=== PATIENT | male | born 1940 | race Caucasian/White ===

== ENCOUNTER 2017-02-10 07:40 | Inpatient (IN) | payer MEDICARE, OTHER ==
[2017-02-07 13:12] VITALS: BP 128/77
[2017-02-07 13:54] LABS: PATH.CAST-FLAG NOT PRESENT; SPERM-FLAG NOT PRESENT; SRC-FLAG NOT PRESENT; XTAL-FLAG NOT PRESENT; YLC-FLAG NOT PRESENT
[2017-02-07 14:04] LABS: ASPARTATE AMINO TRANSFERASE 27 U/L (15-37); BLOOD UREA NITROGEN 33 mg/dL (7-18)
[~2017-02-10] VITALS: Ht 175.3 cm; Wt 81.0 kg
[~2017-02-10 07:40] MED LIST: ACET-1600 PO; ALLO300T PO; AMLO1CAP15 PO; HYDR25TA6 PO; TRANEXAMIC ACID 100 MG/ML, 10ML ONE; VANCOMYCIN 1,000 MG ONE
[2017-02-10] MEDS ORDERED: VANCOMYCIN PER PHARMACY MC STA (08:20)
[2017-02-10] MEDS ORDERED: FENTANYL PF 250 MCG/5ML ONE (08:40)
[2017-02-10] MEDS ORDERED: MIDAZOLAM 1 MG/ML, 2ML ONE (08:40)
[2017-02-10] MEDS ORDERED: LACTATED RINGERS 1,000 ML IV SCH (08:42)
[2017-02-10] MEDS ORDERED: LIDOCAINE 1%, 2ML ONE (08:52)
[2017-02-10] MEDS ORDERED: ROPIvacaine/PF 0.2%, 20 ML ONE (08:59)
[2017-02-10] MEDS ORDERED: FENTANYL PF 100 MCG/2ML IV PRN (09:00)
[2017-02-10] MEDS ORDERED: HYDROmorphone 1 MG/ML, 1ML IV PRN ×2 (09:00→11:30)
[2017-02-10] MEDS ORDERED: hydrALAzine 20 MG/ML, 1ML IV PRN (09:00)
[2017-02-10] MEDS ORDERED: MEPERIDINE/PF 25MG/0.5ML IVPush PRN (09:00)
[2017-02-10] MEDS ORDERED: OXYcodone 5 MG/5 ML ORAL.SOL UDC PO PRN (09:00)
[2017-02-10] MEDS ORDERED: ACETAMINOPHEN 325 MG TABLET PO PRN (09:00)
[2017-02-10] MEDS ORDERED: LIDOCAINE 1%, 2ML SQ PRN (09:00)
[2017-02-10] MEDS ORDERED: MIDAZOLAM 1 MG/ML, 2ML IV PRN (09:00)
[2017-02-10] MEDS ORDERED: PROMETHAZINE 25 MG/ML, 1ML IV PRN (09:00)
[2017-02-10] MEDS ORDERED: LABETALOL 5MG/ML, 20ML IV PRN (09:00)
[2017-02-10] MEDS ORDERED: METOPROLOL 1 MG/ML, 5ML IV PRN (09:00)
[2017-02-10] MEDS ORDERED: ONDANSETRON 2MG/ML, 2ML IVPush PRN (09:00)
[2017-02-10] MEDS ORDERED: ALBUTEROL/IPRATROPIUM 2.5MG/0.5MG, 3 ML NPPB PRN (09:00)
[2017-02-10] MEDS ORDERED: EPHEDRINE 50 MG/ML, 1ML IVPush PRN (09:00)
[2017-02-10] MEDS ORDERED: ALBUTEROL SULFATE 2.5 MG/3 ML NPPB PRN (09:00)
[2017-02-10] MEDS ORDERED: VANCOMYCIN 1,500 MG in SODIUM CHLORIDE 0.9% 250 ML IV ONE (09:30)
[2017-02-10] MEDS ORDERED: CEFAZOLIN 1,000 MG ONE (10:00)
[2017-02-10] MEDS ORDERED: PNEUMOCOCCAL 23 VACCINE IM-VACC ONE (10:00)
[2017-02-10] MEDS ORDERED: ONDANSETRON 2MG/ML, 2ML ONE (10:00)
[2017-02-10] MEDS ORDERED: PROPOFOL 10 MG/ML, 20ML ONE (10:00)
[2017-02-10] MEDS ORDERED: DEXAMETHASONE 4 MG/ML, 1ML ONE (10:00)
[2017-02-10] MEDS ORDERED: SENNA/DOCUSATE TABLET PO PRN (11:30)
[2017-02-10] MEDS ORDERED: MAGNESIUM HYDROXIDE 8%, 30ML UDC PO PRN (11:30)
[2017-02-10] MEDS ORDERED: BISACODYL 10 MG SUPP PR PRN (11:30)
[2017-02-10] MEDS ORDERED: SCOPOLAMINE PATCH, 1.5MG PATCH.TD72 TD SCH (11:30)
[2017-02-10] MEDS ORDERED: ALUMINUM/MAG/SIMETHICONE 30 ML UDC PO PRN (11:30)
[2017-02-10] MEDS ORDERED: DIPHENHYDRAMINE 50 MG CAPSULE PO PRN (11:30)
[2017-02-10] MEDS: ACETAMINOPHEN 650 MG/20.3 ML UDC PO SCH ×2 (11:30→18:25)
[2017-02-10] MEDS ORDERED: ONDANSETRON 4 MG TABLET PO PRN (11:30)
[2017-02-10] MEDS ORDERED: ONDANSETRON 2MG/ML, 2ML IV PRN (11:30)
[2017-02-10] MEDS ORDERED: PROMETHAZINE 12.5 MG SUPP PR PRN (11:30)
[2017-02-10] MEDS ORDERED: TRANEXAMIC ACID 1,000 MG in SODIUM CHLORIDE 0.9% 100 ML IVPB ONE (12:00)
[2017-02-10] MEDS ORDERED: ACETAMINOPHEN 325 MG TABLET ONE (12:05)
[2017-02-10] MEDS ORDERED: OXYcodone 5 MG/5 ML ORAL.SOL UDC ONE (12:05)
[2017-02-10] MEDS ORDERED: ACETAMINOPHEN 650 MG/20.3 ML UDC ONE (12:05)
[2017-02-10 13:12] VITALS: BP 133/69
[2017-02-10 13:16] VITALS: BP 133/69
[2017-02-10] MEDS: D5%-0.45NACL+KCL 20MEQ 1,000 ML IV SCH ×2 (15:12→22:19)
[2017-02-10] MEDS: TAMSULOSIN 0.4 MG CAP.ER.24H PO SCH (15:12)
[2017-02-10] MEDS: CEFAZOLIN PMX 1GM/50ML 50 ML IVPB SCH (18:24)
[2017-02-10 21:27] VITALS: BP 122/74
[2017-02-10] MEDS: DOCUSATE 100 MG CAPSULE PO SCH (22:33)
[2017-02-10] MEDS: OXYcodone IR 5MG TABLET PO PRN (22:33)
[2017-02-11 00:14] VITALS: BP 135/72
[2017-02-11] MEDS: ACETAMINOPHEN 650 MG/20.3 ML UDC PO SCH ×3 (00:25→12:01)
[2017-02-11] MEDS: CEFAZOLIN PMX 1GM/50ML 50 ML IVPB SCH (02:53)
[2017-02-11 04:38] VITALS: BP 110/64
[2017-02-11] MEDS: D5%-0.45NACL+KCL 20MEQ 1,000 ML IV SCH ×2 (04:39→11:27)
[2017-02-11] MEDS ORDERED: DEXAMETHASONE 4 MG/ML, 1ML IVPush SCH (06:00)
[2017-02-11] MEDS ORDERED: ASPIRIN 81 MG TABLET EC PO SCH (06:00)
[2017-02-11] MEDS: OXYcodone IR 5MG TABLET PO PRN ×2 (06:42→12:01)
[2017-02-11 07:35] VITALS: BP 106/65
[2017-02-11] MEDS ORDERED: MULTIVITAMINS/MINERALS TABLET PO SCH (09:00)
[2017-02-11] MEDS ORDERED: ALLOPURINOL 300 MG TABLET PO SCH (09:00)
[2017-02-11] MEDS ORDERED: AMLODIPINE 5 MG TABLET PO SCH (09:00)
[2017-02-11] MEDS ORDERED: BENAZEPRIL 20 MG TABLET PO SCH (09:00)
[2017-02-11] MEDS ORDERED: HYDROCHLOROTHIAZIDE 25 MG TABLET PO SCH (09:00)
[2017-02-11] MEDS: TAMSULOSIN 0.4 MG CAP.ER.24H PO SCH (09:21)
[2017-02-11] MEDS: DOCUSATE 100 MG CAPSULE PO SCH (09:21)
[2017-02-11] MEDS ORDERED: KETOROLAC 30 MG/1 ML IV SCH (11:30)
[2017-02-11] MEDS ORDERED: OXYC5CAP4 PO (12:42)
[2017-02-11] MEDS ORDERED: ONDA4TAB13 SL (12:44)
[2017-02-11] MEDS ORDERED: ASPI-496 PO (12:45)
[2017-02-11] MEDS ORDERED: DOCU-30 PO (12:47)
[2017-02-11 13:00] VITALS: BP 112/66
== END 2017-02-11 13:25 | disposition home or self-care (01) | DRG 470 ==
LOC: ORIP 07:40 → 4NOR 13:07
PROVIDERS: ADMIT Orthopaedic Surgery Adult Reconstructive Orthopaedic Surgery; ATTEND Orthopaedic Surgery Adult Reconstructive Orthopaedic Surgery
PROC: 0SRB04A Replacement of Left Hip Joint with Ceramic on Polyethylene Synthetic Substitute, Uncemented, Open Approach (ICD-10-PCS; principal; 2017-02-11)
DX: M16.12 Unilateral primary osteoarthritis, left hip (principal); E44.1 Mild protein-calorie malnutrition
CPT/HCPCS: 36415; 72170; 80053; 81001; 85025; 85610; 85730; 86850; 86900; 87081; 90732; 93005; C1713; J0690; J1100; J2250; J2405; J2704; J2795; J3010; J3370; C1776; J3480; J7050; J7120

== ENCOUNTER → 2017-05-23 | Outpatient (CLI) | payer MEDICARE, OTHER ==
[~2017-05-23] MED LIST changes: +ASPI-496 PO; +DOCU-131 PO; +OMNIPAQUE 350 MG/ML, 100ML BOTTLE ONE; +ONDA4TAB13 SL; +OXYC5CAP2 PO; -TRANEXAMIC ACID 100 MG/ML, 10ML ONE; -VANCOMYCIN 1,000 MG ONE
== END | disposition home or self-care (01) ==
LOC: CFH 13:38
PROVIDERS: ATTEND Family Medicine
DX: K57.30 Diverticulosis of large intestine without perforation or abscess without bleeding (principal); K80.20 Calculus of gallbladder without cholecystitis without obstruction; N40.0 Benign prostatic hyperplasia without lower urinary tract symptoms; N28.1 Cyst of kidney, acquired; K76.89 Other specified diseases of liver; J98.4 Other disorders of lung
CPT/HCPCS: 74177; 82565; Q9967

== ENCOUNTER 2017-06-17 09:23 | Inpatient (IN) | payer MEDICARE, OTHER ==
[~2017-06-17] VITALS: Ht 175.3 cm; Wt 80.8 kg
[~2017-06-17 09:23] MED LIST changes: -OMNIPAQUE 350 MG/ML, 100ML BOTTLE ONE
[2017-06-17] MEDS ORDERED: ONDANSETRON 2MG/ML, 2ML IVPush PRN ×2 (13:30→15:30)
[2017-06-17] MEDS ORDERED: SODIUM CHLORIDE 0.9% 1,000 ML IV SCH (13:30)
[2017-06-17 13:54] VITALS: BP 110/67
[2017-06-17] MEDS ORDERED: PLEASE ENTER HEIGHT AND WEIGHT MC SCH (14:00)
[2017-06-17 14:07] LABS: BLOOD UREA NITROGEN 29 mg/dL (7-18)
[2017-06-17 14:08] LABS: HEMATOCRIT 38.5 % (39.2-51.8); HEMOGLOBIN 12.7 g/dL (13.7-18.0); WHITE BLOOD COUNT 10.3 x10^3/uL (3.4-10)
[2017-06-17 15:02] VITALS: BP 110/67
[2017-06-17] MEDS: morphine SULFATE 10 MG/ML, 1ML IVPush PRN (15:27)
[2017-06-17] MEDS ORDERED: ONDANSETRON ODT 4 MG PO PRN (15:30)
[2017-06-17] MEDS ORDERED: LABETALOL 5MG/ML, 20ML IVPush PRN (15:30)
[2017-06-17] MEDS ORDERED: morphine SULFATE 10 MG/ML, 1ML IVPush PRN (15:30)
[2017-06-17 17:14] LABS: HEMOGLOBIN 12.1 g/dL (13.7-18.0); WHITE BLOOD COUNT 9.8 x10^3/uL (3.4-10)
[2017-06-17 17:25] LABS: BLOOD UREA NITROGEN 30 mg/dL (7-18)
[2017-06-17 17:29] LABS: ASPARTATE AMINO TRANSFERASE 32 U/L (15-37)
[2017-06-17 20:00] VITALS: BP 112/68
[2017-06-17] MEDS: D5%-0.45% NACL 1,000 ML IV SCH (21:44)
[2017-06-18 02:00] VITALS: BP 108/65
[2017-06-18 05:32] LABS: HEMATOCRIT 32.3 % (39.2-51.8); HEMOGLOBIN 10.6 g/dL (13.7-18.0); WHITE BLOOD COUNT 9.3 x10^3/uL (3.4-10)
[2017-06-18] MEDS: D5%-0.45% NACL 1,000 ML IV SCH ×2 (05:38→20:19)
[2017-06-18 05:55] LABS: ASPARTATE AMINO TRANSFERASE 26 U/L (15-37); BLOOD UREA NITROGEN 24 mg/dL (7-18)
[2017-06-18 07:34] VITALS: BP 119/64
[2017-06-18] MEDS: PANTOPRAZOLE 40 MG IV IVPush SCH (08:13)
[2017-06-18] MEDS ORDERED: HYDROmorphone 1 MG/ML, 1ML IV PRN (11:00)
[2017-06-18] MEDS ORDERED: MEPERIDINE/PF 25MG/0.5ML IVPush PRN (11:00)
[2017-06-18] MEDS ORDERED: MIDAZOLAM 1 MG/ML, 2ML IV PRN (11:00)
[2017-06-18] MEDS ORDERED: DEXAMETHASONE 4 MG/ML, 1ML ONE (11:00)
[2017-06-18] MEDS ORDERED: GLYCOPYRROLATE 0.4 MG/2 ML, 2ML ONE (11:00)
[2017-06-18] MEDS ORDERED: LABETALOL 5MG/ML, 20ML IV PRN (11:00)
[2017-06-18] MEDS ORDERED: ONDANSETRON 2MG/ML, 2ML IVPush PRN (11:00)
[2017-06-18] MEDS ORDERED: ONDANSETRON 2MG/ML, 2ML ONE (11:00)
[2017-06-18] MEDS ORDERED: hydrALAzine 20 MG/ML, 1ML IV PRN (11:00)
[2017-06-18] MEDS ORDERED: PROMETHAZINE 25 MG/ML, 1ML IV PRN (11:00)
[2017-06-18] MEDS ORDERED: SUCCINYLCHOLINE 20 MG/ML, 10ML ONE (11:00)
[2017-06-18] MEDS ORDERED: ROCURONIUM 10 MG/ML,10ML ONE (11:00)
[2017-06-18] MEDS ORDERED: ALBUTEROL SULFATE 2.5 MG/3 ML NPPB PRN (11:00)
[2017-06-18] MEDS ORDERED: FENTANYL PF 100 MCG/2ML IV PRN (11:00)
[2017-06-18] MEDS ORDERED: PROPOFOL 10 MG/ML, 20ML ONE (11:00)
[2017-06-18 12:22] VITALS: BP 118/75
[2017-06-18] MEDS ORDERED: OMNIPAQUE 350 MG/ML, 100ML BOTTLE ONE (14:23)
[2017-06-18] MEDS: morphine SULFATE 10 MG/ML, 1ML IVPush PRN (18:06)
[2017-06-18 20:00] VITALS: BP 130/72
[2017-06-19 00:06] VITALS: BP 107/60
[2017-06-19] MEDS: D5%-0.45% NACL 1,000 ML IV SCH ×3 (04:18→20:33)
[2017-06-19 06:28] LABS: BLOOD UREA NITROGEN 19 mg/dL (7-18)
[2017-06-19 09:36] VITALS: BP 114/63
[2017-06-19] MEDS: PANTOPRAZOLE 40 MG IV IVPush SCH (10:39)
[2017-06-19 12:55] VITALS: BP 131/68
[2017-06-19 19:47] VITALS: BP 138/75
[2017-06-20 02:41] VITALS: BP 144/77
[2017-06-20] MEDS: D5%-0.45% NACL 1,000 ML IV SCH ×3 (04:38→21:52)
[2017-06-20 06:09] LABS: BLOOD UREA NITROGEN 14 mg/dL (7-18)
[2017-06-20 06:18] LABS: HEMATOCRIT 31.9 % (39.2-51.8); HEMOGLOBIN 10.6 g/dL (13.7-18.0); WHITE BLOOD COUNT 11.7 x10^3/uL (3.4-10)
[2017-06-20] MEDS: PANTOPRAZOLE 40 MG IV IVPush SCH (08:55)
[2017-06-20 09:06] VITALS: BP 149/68
[2017-06-20 10:47] LABS: IS PT STATUS REG ER OR PRE ER? NO
[2017-06-20] MEDS ORDERED: OMNIPAQUE 350 MG/ML, 100ML BOTTLE ONE (13:44)
[2017-06-20 14:46] VITALS: BP 123/73
[2017-06-20 17:22] LABS: IS PT STATUS REG ER OR PRE ER? NO
[2017-06-20 19:46] VITALS: BP 146/69
[2017-06-20 22:24] LABS: IS PT STATUS REG ER OR PRE ER? NO
[2017-06-21 02:35] VITALS: BP 130/69
[2017-06-21 05:07] LABS: HEMATOCRIT 30.6 % (39.2-51.8); HEMOGLOBIN 10.1 g/dL (13.7-18.0); WHITE BLOOD COUNT 11.8 x10^3/uL (3.4-10)
[2017-06-21 05:22] LABS: BLOOD UREA NITROGEN 12 mg/dL (7-18)
[2017-06-21] MEDS: D5%-0.45% NACL 1,000 ML IV SCH ×3 (05:54→22:39)
[2017-06-21 09:12] VITALS: BP 139/69
[2017-06-21] MEDS: PANTOPRAZOLE 40 MG IV IVPush SCH (09:33)
[2017-06-21] MEDS ORDERED: MAGNESIUM SULFATE PMX 4GM/100M 100 ML IV ONE (12:30)
[2017-06-21 15:08] VITALS: BP 129/73
[2017-06-21 19:23] VITALS: BP 143/72
[2017-06-22] VITALS (13 sets, daily range): BP systolic 102–146; BP diastolic 44–69
[2017-06-22 05:32] LABS: HEMATOCRIT 30.4 % (39.2-51.8); HEMOGLOBIN 10.5 g/dL (13.7-18.0); WHITE BLOOD COUNT 9.1 x10^3/uL (3.4-10)
[2017-06-22 05:46] LABS: ASPARTATE AMINO TRANSFERASE 15 U/L (15-37); BLOOD UREA NITROGEN 11 mg/dL (7-18)
[2017-06-22] MEDS: D5%-0.45% NACL 1,000 ML IV SCH (06:30)
[2017-06-22] MEDS ORDERED: SODIUM BICARB 8.4%, 50ML SYRINGE ONE (08:00)
[2017-06-22] MEDS: PANTOPRAZOLE 40 MG IV IVPush SCH (08:11)
[2017-06-22] MEDS ORDERED: MAGNESIUM SULFATE PMX 2GM/50ML 50 ML IV ONE (09:00)
[2017-06-22] MEDS: D5%-0.45NACL+KCL 20MEQ 1,000 ML IV SCH ×2 (10:47→21:20)
[2017-06-22] MEDS ORDERED: MIDAZOLAM 1 MG/ML, 2ML ONE (11:34)
[2017-06-22] MEDS ORDERED: SUFentanil 50 MCG/ML, 1ML ONE (11:36)
[2017-06-22] MEDS ORDERED: PROPOFOL 10 MG/ML, 20ML ONE (11:36)
[2017-06-22] MEDS ORDERED: ROCURONIUM 10 MG/ML,10ML ONE ×2 (11:38→16:18)
[2017-06-22] MEDS ORDERED: KETOROLAC 30 MG/1 ML ONE (11:51)
[2017-06-22] MEDS ORDERED: EPINEPHRINE 1 MG/ML, 1ML ONE (11:51)
[2017-06-22] MEDS ORDERED: CEFOTETAN 2 GM ONE (11:51)
[2017-06-22] MEDS ORDERED: HALOPERIDOL 5 MG/ML ONE ×3 (11:51→14:31)
[2017-06-22] MEDS ORDERED: GLYCOPYRROLATE 0.2MG/1ML, 5ML ONE ×2 (11:55)
[2017-06-22] MEDS ORDERED: DEXAMETHASONE 4 MG/ML, 1ML ONE (12:02)
[2017-06-22] MEDS ORDERED: KETAMINE 10 MG/ML, 20ML ONE (12:20)
[2017-06-22] MEDS ORDERED: THROMBIN 5,000 UNIT VIAL TP ONE (13:02)
[2017-06-22] MEDS ORDERED: ONDANSETRON 2MG/ML, 2ML ONE ×2 (13:19)
[2017-06-22] MEDS ORDERED: BUPIVACAINE/PF 0.25% ONE (13:23)
[2017-06-22] MEDS ORDERED: NALOXONE 0.4 MG/ML, 1ML ONE (13:56)
[2017-06-22] MEDS ORDERED: FENTANYL PF 100 MCG/2ML ONE (14:25)
[2017-06-22] MEDS ORDERED: EPINEPHRINE 2 MG in SODIUM CHLORIDE 0.9% 248 ML IV PRN (15:30)
[2017-06-22] MEDS ORDERED: SODIUM BICARBONATE 4.2%, 5ML ONE (15:58)
[2017-06-22] MEDS ORDERED: SODIUM BICARBONATE 1 MEQ/ML, 50ML VIAL ONE (15:59)
[2017-06-22] MEDS ORDERED: FENTANYL PF 250 MCG/5ML ONE (16:18)
[2017-06-22] MEDS ORDERED: NOREPINEPHRINE 1 MG/ML, 4ML ONE (17:43)
[2017-06-22] MEDS ORDERED: MIDAZOLAM 1 MG/ML, 5ML ONE (18:14)
[2017-06-22] MEDS ORDERED: FENTANYL PF 100 MCG/2ML IV PRN (18:30)
[2017-06-22] MEDS ORDERED: NOREPINEPHRINE 4 MG in SODIUM CHLORIDE 0.9% 246 ML IV PRN (18:30)
[2017-06-22] MEDS ORDERED: MIDAZOLAM HCL 25 MG in SODIUM CHLORIDE 0.9% 245 ML IV PRN (18:30)
[2017-06-22 19:15] LABS: ABG COLLECTION SITE ARTERIAL LINE
[2017-06-22] MEDS ORDERED: MIDAZOLAM 1 MG/ML, 5ML IVPush ONE (19:30)
[2017-06-22] MEDS ORDERED: ONDANSETRON 2MG/ML, 2ML IVPush PRN (19:30)
[2017-06-22 20:08] LABS: HEMATOCRIT 20.4 % (39.2-51.8); HEMOGLOBIN 7.1 g/dL (13.7-18.0); WHITE BLOOD COUNT 17.1 x10^3/uL (3.4-10)
[2017-06-22] MEDS ORDERED: LACTATED RINGERS 1,000 ML IV SCH (20:30)
[2017-06-22] MEDS ORDERED: LIDOCAINE-MPF 1%, 2ML ENDO PRN (20:30)
[2017-06-22] MEDS ORDERED: PHARMACY MAY ADJ FOR RENAL FX MC SCH (20:30)
[2017-06-22] MEDS ORDERED: CEFOTETAN PMX 1GM/50ML 50 ML IVPB ONE (20:30)
[2017-06-22 20:31] LABS: ASPARTATE AMINO TRANSFERASE 92 U/L (15-37); BLOOD UREA NITROGEN 14 mg/dL (7-18)
[2017-06-22 20:45] LABS: DIFF TOTAL CELLS COUNTED 200 CELL DIFF; VERIFY COUNTS? YES
[2017-06-22] MEDS: morphine SULFATE 10 MG/ML, 1ML IVPush PRN (22:41)
[2017-06-23] MEDS: morphine SULFATE 10 MG/ML, 1ML IVPush PRN ×6 (01:50→23:39)
[2017-06-23 01:56] VITALS: BP_SYST 106; BP_SYST 132; BP_DIAS 59; BP_DIAS 60
[2017-06-23 02:23] LABS: HEMATOCRIT 27.2 % (39.2-51.8); HEMOGLOBIN 9.1 g/dL (13.7-18.0)
[2017-06-23 04:42] LABS: ABG COLLECTION SITE ARTERIAL LINE
[2017-06-23 04:47] LABS: HEMATOCRIT 25.4 % (39.2-51.8); HEMOGLOBIN 8.6 g/dL (13.7-18.0); WHITE BLOOD COUNT 13.5 x10^3/uL (3.4-10)
[2017-06-23 04:59] LABS: BLOOD UREA NITROGEN 20 mg/dL (7-18)
[2017-06-23] MEDS ORDERED: MAGNESIUM SULFATE PMX 4GM/100M 100 ML IV ONE (06:30)
[2017-06-23] MEDS ORDERED: DIAZEPAM 5 MG/ML, 2ML IV PRN (08:30)
[2017-06-23] MEDS: PANTOPRAZOLE 40 MG IV IVPush SCH (09:12)
[2017-06-23 09:38] LABS: HEMATOCRIT 26.3 % (39.2-51.8); HEMOGLOBIN 8.8 g/dL (13.7-18.0)
[2017-06-23 12:57] LABS: HEMATOCRIT 27.6 % (39.2-51.8); HEMOGLOBIN 9.1 g/dL (13.7-18.0)
[2017-06-24 04:34] LABS: HEMATOCRIT 23.3 % (39.2-51.8); HEMOGLOBIN 7.9 g/dL (13.7-18.0); WHITE BLOOD COUNT 14.2 x10^3/uL (3.4-10)
[2017-06-24 04:39] LABS: BLOOD UREA NITROGEN 28 mg/dL (7-18)
[2017-06-24] MEDS: PANTOPRAZOLE 40 MG IV IVPush SCH (09:09)
[2017-06-24] MEDS: morphine SULFATE 10 MG/ML, 1ML IVPush PRN (09:09)
[2017-06-24] MEDS ORDERED: ENOXAPARIN 30 MG/0.3 ML SQ SCH (10:00)
[2017-06-24 12:25] LABS: HEMATOCRIT 27.9 % (39.2-51.8); HEMOGLOBIN 9.4 g/dL (13.7-18.0)
[2017-06-24 12:52] VITALS: BP 151/96
[2017-06-24] MEDS: OXYcodone IR 5MG TABLET PO PRN ×3 (12:56→23:58)
[2017-06-24] MEDS: HEPARIN 5,000 UNITS/ML, 1ML SQ SCH (18:43)
[2017-06-24 21:02] VITALS: BP 154/81
[2017-06-25 00:05] VITALS: BP 154/82
[2017-06-25 03:45] VITALS: BP 136/76
[2017-06-25] MEDS: HEPARIN 5,000 UNITS/ML, 1ML SQ SCH ×3 (04:04→21:59)
[2017-06-25] MEDS: OXYcodone IR 5MG TABLET PO PRN ×3 (04:14→22:56)
[2017-06-25 05:18] LABS: HEMATOCRIT 23.1 % (39.2-51.8); HEMOGLOBIN 7.9 g/dL (13.7-18.0); WHITE BLOOD COUNT 14.6 x10^3/uL (3.4-10)
[2017-06-25 05:36] LABS: BLOOD UREA NITROGEN 26 mg/dL (7-18)
[2017-06-25 05:37] LABS: ASPARTATE AMINO TRANSFERASE 43 U/L (15-37)
[2017-06-25 07:22] VITALS: BP 140/69
[2017-06-25] MEDS: PANTOPRAZOLE 40 MG IV IVPush SCH (08:14)
[2017-06-25 12:40] VITALS: BP 148/77
[2017-06-25 18:56] VITALS: BP 158/77
[2017-06-26 01:51] VITALS: BP 144/78
[2017-06-26 04:54] LABS: HEMOGLOBIN 7.5 g/dL (13.7-18.0); WHITE BLOOD COUNT 11.8 x10^3/uL (3.4-10)
[2017-06-26 04:58] LABS: BLOOD UREA NITROGEN 25 mg/dL (7-18)
[2017-06-26 05:00] LABS: HEMATOCRIT 22.8 % (39.2-51.8)
[2017-06-26] MEDS: HEPARIN 5,000 UNITS/ML, 1ML SQ SCH ×3 (05:20→23:56)
[2017-06-26 07:16] VITALS: BP 139/73
[2017-06-26] MEDS: PANTOPRAZOLE 40 MG IV IVPush SCH (08:22)
[2017-06-26] MEDS: OXYcodone IR 5MG TABLET PO PRN ×3 (08:31→23:56)
[2017-06-26] MEDS ORDERED: BISACODYL 10 MG SUPP PR ONE (12:00)
[2017-06-26 13:39] VITALS: BP 148/72
[2017-06-26 13:58] VITALS: BP 107/70
[2017-06-26 16:39] VITALS: BP 142/79
[2017-06-26 19:42] VITALS: BP 152/79
[2017-06-27 05:43] LABS: HEMATOCRIT 26.8 % (39.2-51.8); HEMOGLOBIN 9.2 g/dL (13.7-18.0); WHITE BLOOD COUNT 11.3 x10^3/uL (3.4-10)
[2017-06-27 05:50] LABS: ASPARTATE AMINO TRANSFERASE 34 U/L (15-37); BLOOD UREA NITROGEN 23 mg/dL (7-18)
[2017-06-27 08:00] VITALS: BP 152/73
[2017-06-27] MEDS: PANTOPRAZOLE 40 MG IV IVPush SCH (08:55)
[2017-06-27] MEDS: HEPARIN 5,000 UNITS/ML, 1ML SQ SCH ×2 (08:55→15:54)
[2017-06-27] MEDS ORDERED: BISACODYL 10 MG SUPP PR ONE (09:00)
[2017-06-27] MEDS ORDERED: AMLO5TAB2 PO (13:00)
[2017-06-27 14:15] VITALS: BP 133/77
[2017-06-27] MEDS: OXYcodone IR 5MG TABLET PO PRN (16:08)
== END 2017-06-27 16:45 | disposition home or self-care (01) | DRG 326 ==
LOC: 4EST 12:45 → CCU 06-22 17:02 → 4NOR 06-24 12:48
PROVIDERS: ADMIT Hospitalist; ATTEND Hospitalist
PROC: 0DB78ZX Excision of Stomach, Pylorus, Via Natural or Artificial Opening Endoscopic, Diagnostic (ICD-10-PCS; 2017-06-18)
PROC: 0DC68ZZ Extirpation of Matter from Stomach, Via Natural or Artificial Opening Endoscopic (ICD-10-PCS; 2017-06-18)
PROC: 0DB90ZZ Excision of Duodenum, Open Approach (ICD-10-PCS; 2017-06-22)
PROC: 0FT40ZZ Resection of Gallbladder, Open Approach (ICD-10-PCS; 2017-06-22)
PROC: 04L30ZZ Occlusion of Hepatic Artery, Open Approach (ICD-10-PCS; 2017-06-22)
PROC: 0W3P0ZZ Control Bleeding in Gastrointestinal Tract, Open Approach (ICD-10-PCS; 2017-06-22)
PROC: 30233N1 Transfusion of Nonautologous Red Blood Cells into Peripheral Vein, Percutaneous Approach (ICD-10-PCS; 2017-06-22)
PROC: 30233L1 Transfusion of Nonautologous Fresh Plasma into Peripheral Vein, Percutaneous Approach (ICD-10-PCS; 2017-06-22)
PROC: 30233R1 Transfusion of Nonautologous Platelets into Peripheral Vein, Percutaneous Approach (ICD-10-PCS; 2017-06-22)
PROC: 30233K1 Transfusion of Nonautologous Frozen Plasma into Peripheral Vein, Percutaneous Approach (ICD-10-PCS; 2017-06-22)
PROC: 0DB70ZZ Excision of Stomach, Pylorus, Open Approach (ICD-10-PCS; principal; 2017-06-22 10:30)
DX: C16.3 Malignant neoplasm of pyloric antrum (principal); N17.0 Acute kidney failure with tubular necrosis; R57.9 Shock, unspecified; J96.00 Acute respiratory failure, unspecified whether with hypoxia or hypercapnia; E43 Unspecified severe protein-calorie malnutrition; K66.1 Hemoperitoneum; K57.92 Diverticulitis of intestine, part unspecified, without perforation or abscess without bleeding; E83.42 Hypomagnesemia; E86.1 Hypovolemia; K31.1 Adult hypertrophic pyloric stenosis; D62 Acute posthemorrhagic anemia; J98.11 Atelectasis; N18.9 Chronic kidney disease, unspecified; I12.9 Hypertensive chronic kidney disease with stage 1 through stage 4 chronic kidney disease, or unspecified chronic kidney disease; D72.829 Elevated white blood cell count, unspecified; K63.5 Polyp of colon; K80.20 Calculus of gallbladder without cholecystitis without obstruction; M10.9 Gout, unspecified; N40.1 Benign prostatic hyperplasia with lower urinary tract symptoms; R33.8 Other retention of urine; Z96.642 Presence of left artificial hip joint; Z51.5 Encounter for palliative care; Z72.0 Tobacco use; Z85.028 Personal history of other malignant neoplasm of stomach; Z86.010 Personal history of colon polyps; Z68.22 Body mass index [BMI] 22.0-22.9, adult; Z79.82 Long term (current) use of aspirin
CPT/HCPCS: 36415; 36600; 71010; 71260; 74000; 74177; 76705; 78306; 80048; 80053; 82040; 82330; 82803; 82947; 82962; 83735; 84100; 84132; 84295; 84478; 84484; 85014; 85018; 85025; 85610; 85730; 86850; 86900; 86923; 87070; 87077; 87081; 87186; 87205; 88304; 88305; 88307; 88342; 93005; 93306; 94002; 94003; J0171; J1100; J1644; J1650; J1885; J2250; J2405; J2704; J3010; J3490; Q9967; A9503; C9113; C9898; G0461; J0330; J1630; J2270; J3475; J3480; J7030; P9016; P9017; P9035; S0074

== ENCOUNTER → 2017-07-30 | Outpatient (CLI) | payer MEDICARE, OTHER ==
[~2017-07-30] MED LIST changes: +AMLO5TAB2 PO
== END | disposition home or self-care (01) ==
LOC: ROC 13:36
PROVIDERS: ATTEND Radiology Radiation Oncology
DX: C16.4 Malignant neoplasm of pylorus (principal); I10 Essential (primary) hypertension; R14.3 Flatulence; N35.9 Urethral stricture, unspecified; N40.0 Benign prostatic hyperplasia without lower urinary tract symptoms; K57.90 Diverticulosis of intestine, part unspecified, without perforation or abscess without bleeding; F10.10 Alcohol abuse, uncomplicated; F17.200 Nicotine dependence, unspecified, uncomplicated; Z90.49 Acquired absence of other specified parts of digestive tract; Z85.028 Personal history of other malignant neoplasm of stomach; Z86.010 Personal history of colon polyps
CPT/HCPCS: G0463

== ENCOUNTER → 2017-10-24 | Outpatient (CLI) | payer MEDICARE, OTHER | END | disposition home or self-care (01) | LOC: RAD 08:43 | PROVIDERS: ATTEND Internal Medicine Hematology & Oncology | DX: N28.1 Cyst of kidney, acquired (principal); C16.3 Malignant neoplasm of pyloric antrum; Z90.49 Acquired absence of other specified parts of digestive tract | CPT/HCPCS: 76700 ==

== ENCOUNTER → 2018-04-27 | Outpatient (CLI) | payer MEDICARE, OTHER ==
[~2018-04-27] MED LIST changes: -AMLO5TAB2 PO; +AMLO5TAB7 PO
== END | disposition home or self-care (01) ==
LOC: CFH 08:50
PROVIDERS: ATTEND Internal Medicine Hematology & Oncology
DX: N28.1 Cyst of kidney, acquired (principal); C16.3 Malignant neoplasm of pyloric antrum; Z90.49 Acquired absence of other specified parts of digestive tract
CPT/HCPCS: 71046; 76700

== ENCOUNTER → 2018-09-07 | Outpatient (CLI) | payer MEDICARE, OTHER ==
[~2018-09-07] MED LIST changes: +AMLO-150 PO; -AMLO5TAB7 PO
== END | disposition home or self-care (01) ==
LOC: CFH 09:43
PROVIDERS: ATTEND Internal Medicine Hematology & Oncology
DX: C16.3 Malignant neoplasm of pyloric antrum (principal); N28.1 Cyst of kidney, acquired; Z90.49 Acquired absence of other specified parts of digestive tract
CPT/HCPCS: 71046; 76700

== ENCOUNTER → 2018-11-06 | Outpatient (CLI) | payer MEDICARE, OTHER ==
[~2018-11-06] MED LIST changes: +AMLO1CAP2 PO
== END | disposition home or self-care (01) ==
LOC: PETCFH 08:49
PROVIDERS: ATTEND Internal Medicine Hematology & Oncology
DX: K57.30 Diverticulosis of large intestine without perforation or abscess without bleeding (principal); D47.2 Monoclonal gammopathy; C16.3 Malignant neoplasm of pyloric antrum; I25.10 Atherosclerotic heart disease of native coronary artery without angina pectoris; I70.0 Atherosclerosis of aorta; N62 Hypertrophy of breast; Z96.641 Presence of right artificial hip joint; Z87.891 Personal history of nicotine dependence
CPT/HCPCS: 78815; A9552

== ENCOUNTER → 2019-12-02 | Outpatient (CLI) | payer MEDICARE, OTHER ==
[~2019-12-02] MED LIST changes: +ACID1TAB7 PO; -AMLO1CAP15 PO; +AMLO1CAP54 PO; +FURO20TA3 PO; +LOSA100T14 PO; +TAMS-11 PO
== END | disposition home or self-care (01) ==
LOC: RAD 13:57
PROVIDERS: ATTEND Family Medicine
DX: R01.1 Cardiac murmur, unspecified (principal); R06.02 Shortness of breath
CPT/HCPCS: 71046

== ENCOUNTER 2020-02-05 22:08 | Emergency (ER) | payer MEDICARE, OTHER ==
[~2020-02-05] VITALS: Ht 175.3 cm; Wt 81.5 kg
[~2020-02-05 22:08] MED LIST changes: +AMLO10TA8 PO; +FEBU40TA PO
--- NOTE | 2020-02-05 22:48 | NUR ---
THIS IS A 79Y M THAT COMES IN W/ SPOUSE AFTER LOSING CONSCIOUSNESS FOR ABOUT 1-2MINS. PT NOW A/O4 AMBULATORY W/OUT ANY DEFICITS. PT CONNECTED TO ALL MONITORING, VSS, PIV STARTED, ERP AT BEDSIDE FOR ASSESS.
[2020-02-05 23:00] LABS: MEAN CORPUSCULAR HEMOGLOBIN 30.8 pg (27.5-34.5); MEAN CORPUSCULAR HGB CONC 35.3 g/dL (33.2-36.2); MEAN CORPUSCULAR VOLUME 87.5 fL (81-97); RED BLOOD COUNT 2.88 x10^6/uL (4.38-5.82); RED CELL DISTRIBUTION WIDTH 13.5 % (9.4-14.8)
[2020-02-05 23:03] LABS: ALBUMIN 2.8 g/dL (3.4-5.0); ANION GAP 11 mmol/L (5-15); CALCIUM 9.1 mg/dL (8.5-10.1); CHLORIDE 107 mmol/L (98-107)
[2020-02-05 23:10] LABS: ALANINE AMINOTRANSFERASE 57 U/L (12-78); ALKALINE PHOSPHATASE 147 U/L (45-117); BILIRUBIN,TOTAL 0.3 mg/dL (0.2-1.0); CREATININE 1.71 mg/dL (0.7-1.3); TOTAL PROTEIN 7.2 g/dL (6.4-8.2)
[2020-02-05 23:17] LABS: MD YES
[2020-02-05 23:25] LABS: ANISOCYTOSIS 1+; BAND#(MANUAL) 0.08 x10^3/uL; BANDS%(MANUAL) 4 % (0-7); BASOS#(MANUAL) 0.02 x10^3/uL (0-0.1); BASOS% (MANUAL) 1 % (0-1); LYMPH#(MANUAL) 0.82 x10^3/uL (1-3.4); LYMPHS% (MANUAL) 39 % (22-44); MONOS#(MANUAL) 0.13 x10^3/uL (0.3-2.7); MONOS% (MANUAL) 6 % (2-9); REACTIVE LYMPHS # (MANUAL) 0.04 x10^3/uL (0-0); REACTIVE LYMPHS % (MANUAL) 2 % (0-0); SEG#(MANUAL) 1.01 x10^3/uL (1.8-6.8); SEGS% (MANUAL) 48 % (42-75)
[2020-02-05 23:27] LABS: MEAN PLATELET VOLUME 8.4 fL (7.4-10.4)
[2020-02-05 23:30] LABS: <PLATELET ESTIMATE> DECREASED; PLATELET COUNT 28 x10^3/uL (130-400)
[2020-02-05 23:31] LABS: <PLT MORPHOLOGY> NORMAL PLT MORPH
[2020-02-06] MEDS ORDERED: SODIUM CHLORIDE 0.9% 1,000ML IVBOLUS ONE
--- NOTE | 2020-02-06 00:01 | NUR ---
FLUIDS INFUSING WITHOUT DIFFICULTY, VSS NADN
[2020-02-06 01:11] VITALS: BP 117/75
== END 2020-02-06 01:28 | disposition home or self-care (01) ==
LOC: ED 02-06 00:19
DX: R55 Syncope and collapse (principal); R11.2 Nausea with vomiting, unspecified; I10 Essential (primary) hypertension; R94.31 Abnormal electrocardiogram [ECG] [EKG]
CPT/HCPCS: 36415; 80053; 85025; 86850; 86900; 93005; 96360; 99284; J7030

== ENCOUNTER 2021-02-27 06:21 | Day surgery (SDC) | payer MEDICARE, OTHER ==
[~2021-02-27] VITALS: Ht 175.3 cm; Wt 82.4 kg
[~2021-02-27 06:21] MED LIST changes: +AMLO-211 PO; -AMLO10TA8 PO
[2021-02-27] MEDS ORDERED: LOSA100T14 PO (06:57)
[2021-02-27] MEDS ORDERED: SODIUM CHLORIDE 0.9% 1,000 ML IV SCH (07:00)
[2021-02-27 07:03] VITALS: BP 205/79
[2021-02-27] MEDS ORDERED: ALLO100T30 PO (07:09)
== END 2021-02-27 07:30 | disposition home or self-care (01) ==
LOC: OUT 06:21
PROVIDERS: ATTEND Internal Medicine Nephrology
DX: Z02.9 Encounter for administrative examinations, unspecified (principal)

== ENCOUNTER 2021-04-10 07:37 | Day surgery (SDC) | payer MEDICARE, OTHER ==
[~2021-04-10] VITALS: Ht 175.3 cm; Wt 84.5 kg
[~2021-04-10 07:37] MED LIST changes: +ALLO100T30 PO
[2021-04-10 08:12] VITALS: BP 151/75
[2021-04-10 08:38] LABS: INTERNATIONAL NORMALIZED RATIO 0.95 (0.93-1.1); PROTHROMBIN TIME 10.2 Seconds (9.6-11.5)
[2021-04-10] MEDS ORDERED: FENTANYL PF 100 MCG/2ML ONE (09:21)
[2021-04-10] MEDS ORDERED: MIDAZOLAM 1 MG/ML, 5ML ONE (09:21)
[2021-04-10] MEDS ORDERED: NALOXONE 1 MG/ML, 2ML ONE (09:21)
[2021-04-10] MEDS ORDERED: FLUMAZENIL 0.1 MG/1 ML, 5ML ONE (09:21)
== END 2021-04-10 11:30 | disposition home or self-care (01) ==
LOC: OUT 07:37
PROVIDERS: ATTEND Internal Medicine Nephrology
DX: I12.9 Hypertensive chronic kidney disease with stage 1 through stage 4 chronic kidney disease, or unspecified chronic kidney disease (principal); N18.30 Chronic kidney disease, stage 3 unspecified; M10.9 Gout, unspecified; Z88.1 Allergy status to other antibiotic agents; Z88.2 Allergy status to sulfonamides; Z79.899 Other long term (current) drug therapy; Z85.028 Personal history of other malignant neoplasm of stomach; Z87.891 Personal history of nicotine dependence; Z98.890 Other specified postprocedural states
CPT/HCPCS: 36415; 50200; 77012; 85610; 88300; 99156; 99157; J2250; J3010; 88305; 88313; 88346; 88348; 88350; J2310